=== PATIENT | male | born 1990 | race African-American/Black ===

== ENCOUNTER 2016-09-21 08:09 | Emergency (ER) | payer BC ==
[~2016-09-21] VITALS: Ht 170.2 cm; Wt 79.6 kg
[~2016-09-21 08:09] MED LIST: BACT800T5 PO; CEPH500T PO; DICL50TA3 PO
[2016-09-21 08:11] VITALS: BP 130/88; PULSE 65; RESP 16; TEMP 98.6; O2SAT 98
--- NOTE | 2016-09-21 08:46 | PD ---
HPI Chief Complaint: Injury Time Seen by Provider: 08:23 Travel History International Travel<30 days: No Contact w/Intl Traveler<30days: No Traveled to known affect area: No History of Present Illness HPI Patient is a 25-year-old male who comes in complaining of left foot pain. He says 2 days ago he missed a step while trying to walk up the stairs and twisted his foot. He says he fractured his foot in 2 places when he was 12, and is worried he injured his foot again. He was able to walk immediately after the incident. He says he has pain along the side of his foot. He has not taken anything for pain. He says there was some swelling, but this has improved. He denies any other injuries. [facility] Past Medical History Medical History: Denies Significant Hx Past Surgical History Surgical History: No Previous Surgery Social History Alcohol Use: No Tobacco Use: No Substance Use: No Allergies-Medications (Allergen,Severity, Reaction): Coded Allergies: No Known Allergies (Unverified , 09/21/16) Reported Meds & Prescriptions Reported Meds & Active Scripts Active No Active Prescriptions or Reported Medications Review of Systems General / Constitutional: No: Fever, Chills HENT: No: Headaches Cardiovascular: No: Chest Pain or Discomfort Respiratory: No: Shortness of Breath Musculoskeletal: Positive: Pain Skin: No Rash, No Change in Pigmentation Neurologic: No: Weakness, Sensory Disturbance Physical Exam Narrative GENERAL: Awake and alert in no acute distress. SKIN: Warm and dry. HEAD: Atraumatic. Normocephalic. EYES: Pupils equal and round. Extraocular movements intact. ENT: Mucous membranes pink and moist. CARDIOVASCULAR: Regular rate and rhythm. No murmur appreciated. RESPIRATORY: No accessory muscle use. Clear to auscultation. Breath sounds equal bilaterally. MUSCULOSKELETAL: No obvious deformities. No clubbing. No cyanosis. No edema. Tender to palpation of the medial malleolus. Tender to palpation along the lateral side of the left foot. Pedal pulses intact. Pain with dorsiflexion of the left foot. Sensation intact. Data Data Last Documented VS Vital Signs Date Time Temp Pulse Resp B/P Pulse Ox O2 Delivery O2 Flow Rate FiO2 09/21/16 08:11 98.6 65 16 130/88 98 Orders Foot, Complete ([id number]) (09/21/16 ) Ankle, Complete ([id number]) (09/21/16 ) ^ Tod Bandage (09/21/16 09:30) Splint Or Brace Apply/Monitor (09/21/16 09:41) MDM Medical Decision Making Medical Screen Exam Complete: Yes Emergency Medical Condition: Yes Differential Diagnosis Foot sprain versus foot fracture versus ankle fracture versus ankle sprain Narrative Course Patient is a 25-year-old male who comes in complaining of left foot pain after an injury 2 days ago. Exam shows tenderness along the lateral side of the foot. The patient says he does not need any medication for pain. X-rays of the foot and ankle obtained show no acute fracture. Patient given an Tod wrap. Advised to rest the foot, use ice, compression, elevation. Advised to take ibuprofen as needed for pain. Advised follow-up with his doctor. Diagnosis Primary Impression: Foot sprain Qualified Code: S93.602A - Foot sprain, left, initial encounter Patient Instructions: Foot Sprain (ED), General Instructions Additional Instructions: Follow up with your doctor. Wear the tod wrap for comfort. Take Ibuprofen as needed for pain. Apply ice for pain several times per day. Return to the ED as needed for any worsening symptoms. Scripts No Active Prescriptions or Reported Meds Disposition: 01 DISCHARGE HOME Condition: Stable Tamera Mcdermott MD Sep 21, 2016 08:46
--- NOTE | 2016-09-21 09:15 | RADHPO ---
EXAM DATE/TIME: 09/21/2016 08:32 [facility] COMPARISON: No previous studies available for comparison. INDICATIONS : Left lateral foot/ankle pain. MEDICAL HISTORY : None. SURGICAL HISTORY : None. ENCOUNTER: Initial ACUITY: 3 days PAIN SCORE: 7/10 LOCATION: Left lateral ankle FINDINGS: Three view exam was performed of the left ankle. The bony structures are in normal alignment. No ev idence of fracture, dislocation, or soft tissue swelling. The ankle mortise is intact. No radiopaqu e foreign bodies are seen. Bony mineralization is normal. CONCLUSION: No acute disease. Lit Franco MD on September 21, 2016 at 9:13 Board Certified Radiologist. This report was verified electronically.
--- NOTE | 2016-09-21 09:21 | RADHPO ---
EXAM DATE/TIME: 09/21/2016 08:36 [facility] COMPARISON: No previous studies available for comparison. INDICATIONS: Left lateral foot/ankle pain. MEDICAL HISTORY: None. SURGICAL HISTORY: None. ENCOUNTER: Initial ACUITY: 3 days PAIN SCORE: 7/10 LOCATION: Left lateral foot FINDINGS: There is no acute fracture or dislocation of the left foot. Mild degenerative changes are noted invo lving the left first metatarsal phalangeal joint. CONCLUSION: 1. No acute fracture or dislocation. 2. Mild degenerative changes involving the first metatarsal phalangeal joint. Lit Franco MD on September 21, 2016 at 9:17 Board Certified Radiologist. This report was verified electronically.
== END 2016-09-21 09:50 | disposition home or self-care (01) ==
LOC: PHED 08:09
DX: S93.602A Unspecified sprain of left foot, initial encounter (principal); X50.1XXA Overexertion from prolonged static or awkward postures, initial encounter
CPT/HCPCS: 73610; 73630; 99283